=== PATIENT | male | born 1950 | race African-American/Black ===

== ENCOUNTER 2018-03-15 13:51 | Emergency (ER) | payer OTHER ==
[2018-03-15] MEDS ORDERED: SODIUM CHLORIDE 1,000 ML IV ONE (14:17)
--- NOTE | 2018-03-15 14:19 | PDOC ---
History of Present Illness - General Chief Complaint: Syncope/Near Syncope Stated Complaint: Syncope/Near Syncope Time Seen by Provider: 03/15/18 14:03 History Source: Patient Exam Limitations: No Limitations - History of Present Illness Initial Comments: 03/15/18 14:19 68y M hx of RA, smoking, opiod abuse present with complaint of syncope. pt states he has been feeling fine this morning, had a couple of beers and was mowing his lawn this morning when he syncopized. he denies any associated headache, dizziness, n/v, f/c, cough cp, abd pain, back pain, neck pain, sob, hall. denies any opiate use recently. no prior history of syncope. Past History - Past Medical History Allergies/Adverse Reactions: Allergies Allergy/AdvReac Type Severity Reaction Status Date / Time No Known Allergies Allergy Verified 03/15/18 14:00 Home Medications: Ambulatory Orders NK [No Known Home Medication] 03/15/18 COPD: No Other medical history: RA - Suicide/Smoking/Psychosocial Hx Smoking History: Current every day smoker Have you smoked in the past 12 months: Yes Number of Cigarettes Smoked Daily: 20 Information on smoking cessation initiated: No Hx Alcohol Use: No Drug/Substance Use Hx: No Substance Use Type: Alcohol, Marijuana Review of Systems - Review of Systems Able to Perform ROS?: Yes Comments:: 03/15/18 14:31 Constitutional - no reported Fever, Chills, HEENT: no reported vision changes, sore throat Respiratory: no reported cough, sob, hemoptysis Cardiac: +syncope no reported chest pain, palpitations, light headedness, leg swelling Abd/GI: no reported abd pain, nausea, vomiting, blood per rectum, melena, diarrhea : no reported dysuria, frequency, discharge Musculskelatal - no reported back pain, joint swelling skin - no reported bruising, erythema, rash neurological: no reported headache, numbness, focal weakness, tingling, ataxia, hematologic: no reported easy bruising, easy bleeding *Physical Exam - Vital Signs Last Vital Signs Temp Pulse Resp BP Pulse Ox 97.8 F 83 18 105/69 99 03/15/18 14:01 03/15/18 14:54 03/15/18 14:54 03/15/18 14:54 03/15/18 14:54 - Physical Exam Comments: 03/15/18 14:31 GENERAL: The patient is awake, alert, and fully oriented, Nontoxic - in no acute distress. HEAD: Normocephalic, contusion on the L pariatal scalp near vertex, no fcal tenderness or step offs EYES: extraocular movements intact, sclera anicteric, conjunctiva clear. ENT: Normal voice, dry mucous membranes. NECK: Normal range of motion, supple LUNGS: Breath sounds equal, clear to auscultation bilaterally. No wheezes, no rhonchi, no rales. HEART: Regular rate and rhythm, normal S1 and S2 without murmur, rub or gallop. ABDOMEN: Soft, nontender, normoactive bowel sounds. No guarding, no rebound. . No CVA tenderness EXTREMITIES: Normal range of motion, no edema. No clubbing or cyanosis. No cords, erythema, or tenderness. NEUROLOGICAL: No facial assymetry, Normal speech, PSYCH: Normal mood, normal affect. SKIN: superficail abrasions on the R flank without focal tenderness or ecchymosis, mil dtenderess in the R lateral chest wall Heart Score/ECG Review - ECG Impressions Comment:: 03/15/18 14:33 Twelve-lead EKG was performed and reviewed by me. There is normal sinus rhythm with a normal rate. Rate of 88 Left axis deviation There is normal R wave progression There are no ST or T wave abnormalities. ED Treatment Course - LABORATORY CBC & Chemistry Diagram: 03/15/18 14:20 03/15/18 14:20 - ADDITIONAL ORDERS Additional order review: Laboratory Results 03/15/18 03/15/18 14:20 14:20 PT with INR 11.60 INR 1.03 Sodium 140 Potassium 4.8 Chloride 109 H Carbon Dioxide 22 Anion Gap 9 BUN 11 Creatinine 1.4 H Creat Clearance w eGFR 50.40 Random Glucose 67 L Calcium 8.6 Total Bilirubin 0.5 AST 30 ALT 21 Alkaline Phosphatase 95 Creatine Kinase 306 Creatine Kinase Index 1.3 CK-MB (CK-2) 4.198 H Troponin I < 0.02 Total Protein 6.6 Albumin 3.3 L 03/15/18 14:20 RBC 3.73 L MCV 94.2 MCHC 33.6 RDW 12.8 MPV 7.3 L Neutrophils % 66.8 Lymphocytes % 17.8 Monocytes % 7.3 Eosinophils % 7.2 H Basophils % 0.9 - RADIOLOGY Radiology Studies Ordered: Category Date Time Status HEAD CT WITHOUT CONTRAST [CT] Stat CT Scan 03/15/18 14:16 Completed CHEST X-RAY PORTABLE* [RAD] Stat Radiology 03/15/18 14:17 Completed RIBS RIGHT SIDE [RAD] Stat Radiology 03/15/18 14:57 Taken - Medications Given in the ED: ED Medications Discontinued Medications Generic Name Dose Route Start Last Admin Trade Name Freq PRN Reason Stop Dose Admin Sodium Chloride 1,000 mls @ 1,000 mls/hr 03/15/18 14:17 03/15/18 14:28 Normal Saline - IV 03/15/18 15:16 1,000 mls/hr .Q1H ONE Administration Medical Decision Making - Medical Decision Making 03/15/18 14:36 suspect dehydration as pt was drinking and was exerting himself no assoc pain to suggest catestrophic ascular event will ck labs, ekg, cxr will give fluids for hydration will reassess 03/15/18 17:13 labs reviewd pts BP improving with fluids cxr clear ct head neg for acute pathology willl dc the pt with pmd fu return precautions were dsicussed I discussed the physical exam findings, ancillary test results and final diagnoses with the patient. I answered all of the patient's questions. The patient was satisfied with the care received and felt comfortable with the discharge plan and treatment plan. The patient will call their primary care physician within 24 hours to arrange follow-up and will return to the Emergency Department with any new, persistent or worsening symptoms. *DC/Admit/Observation/Transfer Diagnosis at time of Disposition: Dehydration, Rib pain on right side Syncope Qualifiers: Syncope type: heat syncope Encounter type: initial encounter Qualified Code(s) : T67.1XXA - Heat syncope, initial encounter Scalp abrasion Qualifiers: Encounter type: initial encounter Qualified Code(s): S00.01XA - Abrasion of scalp, initial encounter - Discharge Dispostion Disposition: HOME Condition at time of disposition: Improved Decision to Admit order: No - Referrals Referrals: Clemente Campos MD [Staff Physician] - - Patient Instructions Printed Discharge Instructions: DI for Syncope in Adults (Fainting) Additional Instructions: Return to the emergency department immediately with ANY new, persistent or worsening symptoms. Apply bacitracin to your abrasion on your scalp. TAke tylenol or motrin for your rib pain. Make sure to stay well hyrated You MUST call and follow up with your doctor tomorrow for further evaluation of your symptoms. Results were discussed with you. Please make sure your doctor reviews the results of your emergency evaluation. If you had any xrays during your visit, it was read preliminarily by myself, a Radiologist will review it and if there are any additional findings we will call you. Print Language: ZAMBIAN - Post Discharge Activity
[2018-03-15 14:28] VITALS: TEMP 97.8; BMI 22.1
[2018-03-15 14:33] LABS: BASO % 0.9 % (0-2.0); EOS % 7.2 % (0-4.5); HEMATOCRIT 35.1 % (35.4-49); HEMOGLOBIN 11.8 GM/dL (11.7-16.9); LYMPH % 17.8 % (8-40); MCH 31.6 pg (25.7-33.7); MCHC 33.6 g/dl (32.0-35.9); MEAN CELL VOLUME 94.2 fl (80-96); MEAN PLT VOLUME 7.3 fl (7.5-11.1); MONO % 7.3 % (3.8-10.2); NEUT % 66.8 % (42.8-82.8); PLATELET COUNT 353 K/MM3 (134-434); RBC 3.73 M/mm3 (4.00-5.60); RDW 12.8 % (11.9-15.9); WHITE BLOOD COUNT 7.8 K/mm3 (4.0-10.0)
[2018-03-15 14:59] LABS: ALBUMIN 3.3 g/dl (3.4-5.0); ANION GAP 9 (8-16); BILIRUBIN,TOTAL 0.5 mg/dL (0.2-1.0); BLOOD UREA NITROGEN 11 mg/dL (7-18); CALCIUM 8.6 mg/dL (8.5-10.1); CHLORIDE 109 mmol/L (98-107); CO2 22 mmol/L (21-32); CREATININE 1.4 mg/dL (0.7-1.3); GLUCOSE,RANDOM 67 mg/dL (74-106); POTASSIUM 4.8 mmol/L (3.5-5.1); SGOT/AST 30 U/L (15-37); SGPT/ALT 21 U/L (12-78); SODIUM 140 mmol/L (136-145); TOT PROT 6.6 g/dl (6.4-8.2)
[2018-03-15 15:02] LABS: ALK PHOS 95 U/L (45-117)
[2018-03-15 15:05] LABS: INR 1.03 (0.82-1.09); PROTHROMBIN TIME (PATIENT) 11.6 SEC (9.7-13.0)
--- NOTE | 2018-03-15 16:28 | EKG ---
Test Reason : Blood Pressure : / mmHG Vent. Rate : 088 BPM Atrial Rate : 088 BPM P-R Int : 172 ms QRS Dur : 090 ms QT Int : 364 ms P-R-T Axes : 071 -44 046 degrees QTc Int : 440 ms NORMAL SINUS RHYTHM LEFT AXIS DEVIATION ABNORMAL ECG WHEN COMPARED WITH ECG OF 14-JUL-2001 20:02, QRS DURATION HAS INCREASED ST NO LONGER DEPRESSED IN INFERIOR LEADS NONSPECIFIC T WAVE ABNORMALITY NOW EVIDENT IN INFERIOR LEADS QT HAS SHORTENED Confirmed by HARRIETT CRUM MD ([id number]) on 03/15/2018 4:27:52 PM Referred By: Confirmed By:HARRIETT CRUM MD
[2018-03-15] MEDS ORDERED: BACITRACIN 0.9 GM PACKET ONE (18:30)
[2018-03-15 18:45] VITALS: BP 120/67; PULSE 87
== END 2018-03-15 18:45 | disposition home or self-care (01) ==
LOC: JER 13:51
PROC: 3E0337Z Introduction of Electrolytic and Water Balance Substance into Peripheral Vein, Percutaneous Approach (ICD-10-PCS; principal; 2018-03-15)
DX: T67.1XXA Heat syncope, initial encounter (principal); E86.0 Dehydration; X50.0XXA Overexertion from strenuous movement or load, initial encounter; Y93.H2 Activity, gardening and landscaping; Y92.017 Garden or yard in single-family (private) house as the place of occurrence of the external cause; Y99.8 Other external cause status
CPT/HCPCS: 36415; 70450-TC; 71045-TC-FY; 71101-TC-RT-FY; 80053; 82550; 82553; 84484; 85025; 85610; 93005; 93010; 99285-25; J7030

== ENCOUNTER 2019-01-21 14:24 | Inpatient (IN) | payer OTHER ==
--- NOTE | 2019-01-21 14:53 | PDOC ---
Rapid Medical Evaluation Time Seen by Provider: 01/21/19 14:49 Medical Evaluation: Allergies Allergy/AdvReac Type Severity Reaction Status Date / Time No Known Allergies Allergy Verified 03/15/18 14:00 01/21/19 14:50 I have performed a brief in-person evaluation of this patient The patient present with a chief complaint of: palpitations x 3 days. Also reports neck pain and insomnia. Pertinent physical exam findings: NAD neck is supple even and unlabored breathing I have ordered the following: ekg The patient will proceed to the ED for further evaluation. Discharge Disposition - Diagnosis Palpitations - Referrals - Patient Instructions - Post Discharge Activity
[2019-01-21 14:57] VITALS: BMI 20.7
--- NOTE | 2019-01-21 15:36 | PDOC ---
History of Present Illness - General Chief Complaint: Psychiatric Stated Complaint: NECK PAIN/ANXIETY Time Seen by Provider: 01/21/19 14:49 - History of Present Illness Initial Comments: King Jimenez is a 69yo man with a PMH of BPH, current smoker, heroin and daily alcohol use who presents today after an apparent syncopal episode 3 days ago. He states that he "fell out" in his kitchen 3 days ago with +LOC and hit the back of his head. His brothers were prsent at home but neither witnessed the event. He regained consciousness on his own after an unknown period of time and was then able to call his brothers for assistance. Since the fall, he has had chest tightness, new dyspnea with exertion, left arm tingling, and frequent heavy sweating. He states that he has had frequent palpitations and racing heart , which he has never experienced before. He "knows something is wrong" and reports feeling extremely anxious over the past few days. He is requesting something to help with the anxiety. Mr Jimenez states that he currently smokes 1/2 PPD, drinks "a few" beers every day, and snorts heroin on occasion (most recently 2-3 weeks ago). He has no known h/ o HTN, DM, HLD or any other chronic medical condition. Past History - Past Medical History Allergies/Adverse Reactions: Allergies Allergy/AdvReac Type Severity Reaction Status Date / Time No Known Allergies Allergy Verified 01/21/19 14:56 Home Medications: Ambulatory Orders NK [No Known Home Medication] 03/15/18 COPD: No - Suicide/Smoking/Psychosocial Hx Smoking History: Never smoked Have you smoked in the past 12 months: No Number of Cigarettes Smoked Daily: 20 Information on smoking cessation initiated: No Hx Alcohol Use: No Drug/Substance Use Hx: No Substance Use Type: Alcohol, Marijuana Review of Systems - Review of Systems Comments:: General: No fevers, no weight or appetite change, no malaise, +diaphoresis, + chills HEENT: No changes in vision, no changes in hearing, no congestion, no sore throat CV: +palpitatiosn, +chest tightness, no LE edema Pulm: +SOB, no cough, no wheezing GI: No nausea or vomiting, no change in bowel habits, no melena : No frequency, no urgency, no dysuria Musc: No back pain, no joint swelling, no recent injury Skin: No rash, no lesions, no erythema Endo: No excessive thirst, no heat/cold intolerance Heme: No unusual bruising or bleeding, no swollen glands Neuro: +Syncope w/ head injury, +LUE tingling and pain, no focal weakness Vasc: No claudication Psych: +Inc anxiety. +heroin use, no SI or HI *Physical Exam - Vital Signs Last Vital Signs Temp Pulse Resp BP Pulse Ox 98.6 F 97 H 18 139/98 98 01/21/19 14:49 01/21/19 14:49 01/21/19 14:49 01/21/19 14:49 01/21/19 14:49 - Physical Exam Comments: General: Comfortable, no acute distress HEENT: PERRL, EOMI, MMM, voice normal, normal neck ROM Cards: RRR, no murmur appreciated Pulm: Comfortable on room air, clear to auscultation bilaterally Abd: Soft, nontender, nondistended : No CVA tenderness Ext: Atraumatic. No LE edema. ROM intact. Vasc: Extremities WWP Skin: Normal color, no rashes or lesions Neuro: A&Ox3, CN grossly intact, normal speech, motor/sensory grossly intact and symmetric Psych: Appears anxious ED Treatment Course - LABORATORY CBC & Chemistry Diagram: 01/21/19 15:47 01/21/19 15:47 Medical Decision Making - Medical Decision Making 01/21/19 15:35 King Jimenez is a 69yo man with a PMH of BPH, current smoker, heroin and daily alcohol use who presents today after an apparent syncopal episode 3 days ago. - EKG completed on arrival, shows ST elevations in V3 and V4, t-wave inversion in III and aVF, poor R wave progression in lateral leads - Concern for MO 3 days ago. - Ddx also includes new onset CHF, valve change, new onset paroxysmal a-fib. Less likely PE given lack of risk factors. - Pt reports fall with head injury and LOC. CT head/c-spine to rule out acute injury - CBC, CMP, trop, BNP, coags, CXR, CT head, CT c-spine 01/21/19 16:24 - Spoke to Dr Babin, cardiology, reagarding EKG changes. Will send EKG to him for review - Labs pending 01/21/19 17:52 - Labs completed. Notable for BNP 2700. Trop negative - Spoke to Dr Restrepo regarding admission. Requests telemetry admission and consult to Dr Ontiveros for syncope. Discussed with Dr Oliva. Christina Cortes PGY1 *DC/Admit/Observation/Transfer Diagnosis at time of Disposition: Palpitations, ST segment changes on electrocardiogram Syncope Qualifiers: Syncope type: heat syncope Encounter type: initial encounter Qualified Code(s) : T67.1XXA - Heat syncope, initial encounter - Discharge Dispostion Decision to Admit order: Yes - Referrals Referrals: Clemente Campos MD [Primary Care Provider] - - Patient Instructions - Post Discharge Activity
--- NOTE | 2019-01-21 15:44 | PDOC ---
Attending Attestation - HPI HPI: 01/21/19 16:30 The patient is a 69 year old male, with a significant past medical history of BPH, who presents to the emergency department s/p syncope and fall. As per patient, he syncopized and subsequently fell backwards hitting the back of his head and neck onsetting pain and tingling to his left arm. He denies any recent nausea, vomit, diarrhea or constipation. He denies any recent dysuria, frequency , urgency or hematuria. Allergies: NKA Past surgical history: None reported. Social History: Smoker. Alcohol abuse. Occasional heroin usage. Primary Care Physician: Dr. Clemente Campos - Physicial Exam PE: 01/21/19 16:30 GENERAL: +Anxious. The patient is in no acute distress. HEAD: Normal with no signs of trauma. EYES: PERRLA, EOMI, sclera anicteric, conjunctiva clear. ENT: Ears normal, nares patent, oropharynx clear without exudates. Moist mucous membranes. NECK: Normal range of motion, supple without lymphadenopathy, JVD, or masses. LUNGS: Breath sounds equal, clear to auscultation bilaterally. No wheezes, and no crackles. HEART:Regular rate and rhythm, normal S1 and S2 without murmur, rub or gallop. ABDOMEN: Soft, nontender, normoactive bowel sounds. No guarding, no rebound. No masses palpable. EXTREMITIES: Normal range of motion, no edema. No clubbing or cyanosis. No erythema, or tenderness. NEUROLOGICAL: Cranial nerves II through XII grossly intact. Normal speech. No focal neurological deficits. MUSCULOSKELETAL: Back non-tender to palpation, no CVA tenderness SKIN: Warm, Dry, normal turgor, no rashes or lesions noted. <Marito Ruby - Last Filed: 01/21/19 16:30> - Resident Resident Name: Christina Cortes - ED Attending Attestation I have performed the following: I have examined & evaluated the patient, The case was reviewed & discussed with the resident, I agree w/resident's findings & plan, Exceptions are as noted - Medical Decision Making 01/21/19 15:32 EKG - LBBB, rate of 87 bpm SR rate of 88 bpm, LAD, intervals nml (pr:172ms, QRS:90ms, QRc:440ms), no st elevation or depression (FEBRUARY 2018) EKG sent to Dr Babin Pt currently has no chest pain but states he is anxious Request medications for anxiety 01/21/19 17:01 Laboratory Tests 01/21/19 01/21/19 01/21/19 15:47 15:47 15:47 WBC 4.8 Hgb 12.9 Hct 37.6 Plt Count 143 D INR 0.87 Sodium 133 L Potassium 4.5 Chloride 97 L Carbon Dioxide 31 BUN 12 Creatinine 1.1 Random Glucose 79 Creatine Kinase 265 Troponin I < 0.02 B-Natriuretic Peptide 01/21/19 15:47 WBC Hgb Hct Plt Count INR Sodium Potassium Chloride Carbon Dioxide BUN Creatinine Random Glucose Creatine Kinase Troponin I B-Natriuretic Peptide 2767.0 [address] Being seen by DR Babin now Will admit to Dr Restrepo <Moni Oliva - Last Filed: 01/22/19 14:01> *DC/Admit/Observation/Transfer <Marito Ruby - Last Filed: 01/21/19 16:30> - Discharge Dispostion Decision to Admit order: Yes <Moni Oliva - Last Filed: 01/22/19 14:01> Diagnosis at time of Disposition: Palpitations, Syncope, ST segment changes on electrocardiogram - Discharge Dispostion Condition at time of disposition: Stable Attestations - Attestations 01/21/19 16:30 Documentation prepared by Marito Ruby, acting as medical laboratory technician for Moni Oliva MD. <Marito Ruby - Last Filed: 01/21/19 16:30>
[2019-01-21] MEDS ORDERED: ASPIRIN 81 MG CHEWABLE TABLETS PO ONE (16:11)
[2019-01-21] MEDS ORDERED: LORazepam 0.5 MG TABLET PO ONE (16:11)
[2019-01-21 16:14] LABS: BASO % 1.1 % (0-2.0); EOS % 0.8 % (0-4.5); HEMATOCRIT 37.6 % (35.4-49); HEMOGLOBIN 12.9 GM/dL (11.7-16.9); LYMPH % 25.8 % (8-40); MCH 35.7 pg (25.7-33.7); MCHC 34.3 g/dl (32.0-35.9); MEAN CELL VOLUME 104.1 fl (80-96); MEAN PLT VOLUME 8.1 fl (7.5-11.1); MONO % 9.5 % (3.8-10.2); NEUT % 62.8 % (42.8-82.8); PLATELET COUNT 143 K/MM3 (134-434); RBC 3.62 M/mm3 (4.00-5.60); RDW 13.2 % (11.9-15.9); WHITE BLOOD COUNT 4.8 K/mm3 (4.0-10.0)
[2019-01-21] MEDS ORDERED: LORazepam 0.5 MG TABLET ONE (16:17)
[2019-01-21] MEDS ORDERED: ASPIRIN 81 MG CHEWABLE TABLETS ONE (16:17)
[2019-01-21 16:26] LABS: INR 0.87 (0.83-1.09); PROTHROMBIN TIME (PATIENT) 10.3 SEC (9.7-13.0)
[2019-01-21 16:37] LABS: ALK PHOS 91 U/L (45-117); ANION GAP 6 MMOL/L (8-16); BILIRUBIN,TOTAL 1.7 mg/dL (0.2-1); BLOOD UREA NITROGEN 12 mg/dL (7-18); CALCIUM 9.1 mg/dL (8.5-10.1); CHLORIDE 97 mmol/L (98-107); CO2 31 mmol/L (21-32); CREATININE 1.1 mg/dL (0.55-1.3); GLUCOSE,RANDOM 79 mg/dL (74-106); POTASSIUM 4.5 mmol/L (3.5-5.1); SGOT/AST 60 U/L (15-37); SGPT/ALT 34 U/L (13-61); SODIUM 133 mmol/L (136-145)
--- NOTE | 2019-01-21 17:17 | CON.CARD ---
Consult Consult Specialty:: Cardiology Referred by:: Dr. Christie Oliva (ER) Reason for Consultation:: Cardiac evaluation - History of Present Illness Chief Complaint: Dizziness History of Present Illness: Patient is a 69 year old male with underlying history of BPH, polysubstance abuse (smoking cigarette, heroine and alcohol) who presented with what appears to be a syncopal episode 3 days ago. He fell in the kitchen with LOC and hit the back of his head. It was unwitnessed. He regained consciousness, but did not seek medical attention at that time. He complained of chest tightness, dyspnea with exertion, left arm numbness and sweating. He also complained of palpitations intermittently. He also complains of anxiety. He denies HTN, hyperlipidemia, DM or CAD. - History Source History Provided By: Patient, Medical Record Limitations to Obtaining History: Poor Historian - Past Surgical History Past Surgical History: Yes: None - Alcohol/Substance Use Hx Alcohol Use: Yes History of Substance Use: reports: Heroin - Smoking History Smoking history: Current some day smoker Aproximately how many cigarettes per day: 20 Home Medications - Allergies Allergies/Adverse Reactions: Allergies Allergy/AdvReac Type Severity Reaction Status Date / Time No Known Allergies Allergy Verified 01/21/19 14:56 - Home Medications Home Medications: Ambulatory Orders NK [No Known Home Medication] 03/15/18 Review of Systems - Review of Systems Constitutional: denies: Chills, Fever Cardiovascular: reports: Chest Pain, Palpitations, Shortness of Breath Respiratory: reports: SOB. denies: Cough, Hemoptysis, Orthopnea, PND Gastrointestinal: denies: Abdominal Pain, Constipation, Diarrhea, Melena, Nausea , Rectal Bleeding, Vomiting Musculoskeletal: denies: Joint Pain Neurological: reports: Dizziness, Syncope. denies: Headache, Seizure Vital Signs: Vital Signs Temperature 98.6 F 01/21/19 14:49 Pulse Rate 97 H 01/21/19 14:49 Respiratory Rate 18 01/21/19 14:49 Blood Pressure 139/98 01/21/19 14:49 O2 Sat by Pulse Oximetry (%) 98 01/21/19 14:49 Eyes: Yes: PERRL HENT: Yes: Atraumatic Neck: Yes: Supple Respiratory: Yes: CTA Bilaterally Gastrointestinal: Yes: Normal Bowel Sounds, Soft. No: Tenderness Cardiovascular: Yes: Regular Rate and Rhythm JVD: No Carotid Bruit: No PMI: Non-Displaced Heart Sounds: Yes: S1, S2 Murmur: Yes: Systolic Murmur, Grade 1 Edema: No - Other Data Labs, Other Data: CBC, BMP 01/21/19 15:47 01/21/19 15:47 INR, PTT INR 0.87 (0.83-1.09) 01/21/19 15:47 Troponin, BNP 01/21/19 01/21/19 15:47 15:47 Troponin I < 0.02 B-Natriuretic Peptide 2767.0 H Troponin, BNP Sinus with ?LBBB and ST abnormalities Echo: Pending Imaging - Results Chest X-ray: Report Reviewed (Hyperinflation, nodular density) EKG: Report Reviewed Problem List - Problems (1) Chest pain Code(s): R07.9 - CHEST PAIN, UNSPECIFIED (2) Shortness of breath Code(s): R06.02 - SHORTNESS OF BREATH (3) Dizziness Code(s): R42 - DIZZINESS AND GIDDINESS (4) Palpitations Code(s): R00.2 - PALPITATIONS (5) ST segment changes on electrocardiogram Code(s): R94.31 - ABNORMAL ELECTROCARDIOGRAM [ECG] [EKG] (6) Syncope Code(s): R55 - SYNCOPE AND COLLAPSE Qualifiers: Syncope type: heat syncope Encounter type: initial encounter Qualified Code(s): T67.1XXA - Heat syncope, initial encounter Assessment/Plan 1. Abnormal ECG suggest CAD with new LBBB 2. Syncope, etiology to be determined 3. Anxiety 4. Palpitations, rule out arrhythmia PLAN: 1. Serial cardiac enzymes 2. Add beta honey - Metoprolol 25 mg BID 3. ASA 4. Echocardiography to assess LV/RV and valvular function 5. Further cardiac evaluation to follow and continue telemetry monitoring Evert Babin MD
[2019-01-22] MEDS: METOPROLOL TARTRATE 25 MG TABLET (FP) PO SCH ×2 (00:03→09:45)
[2019-01-22 06:24] LABS: EOS % 3.2 % (0-4.5); HEMATOCRIT 38.5 % (35.4-49); HEMOGLOBIN 12.9 GM/dL (11.7-16.9); LYMPH % 30.3 % (8-40); MCH 34.7 pg (25.7-33.7); MCHC 33.6 g/dl (32.0-35.9); MEAN CELL VOLUME 103.1 fl (80-96); MEAN PLT VOLUME 7.9 fl (7.5-11.1); MONO % 16.4 % (3.8-10.2); NEUT % 49.1 % (42.8-82.8); PLATELET COUNT 137 K/MM3 (134-434); RBC 3.73 M/mm3 (4.00-5.60); RDW 13.2 % (11.9-15.9); WHITE BLOOD COUNT 3.9 K/mm3 (4.0-10.0)
[2019-01-22 06:59] LABS: ALBUMIN 3.5 g/dl (3.4-5.0); ALK PHOS 83 U/L (45-117); ANION GAP 7 MMOL/L (8-16); BILIRUBIN,TOTAL 1.7 mg/dL (0.2-1); BLOOD UREA NITROGEN 15 mg/dL (7-18); CHLORIDE 100 mmol/L (98-107); CO2 28 mmol/L (21-32); GLUCOSE,RANDOM 77 mg/dL (74-106); POTASSIUM 3.7 mmol/L (3.5-5.1); SGOT/AST 50 U/L (15-37); SGPT/ALT 30 U/L (13-61); SODIUM 136 mmol/L (136-145); TOT PROT 6.6 g/dl (6.4-8.2)
[2019-01-22] MEDS: HEPARIN NA (PORCINE) 5,000 UNITS/ML 1ML VIAL SQ SCH ×2 (09:45→22:33)
[2019-01-22] MEDS: ASPIRIN COATED 81 MG TABLET.EC PO SCH (09:45)
--- NOTE | 2019-01-22 10:35 | CONSULT ---
Consult - text type - Consultation Consultation Note: NEUROLOGY CONSULT APPRECIATED: This 69 yo RH single disabled man lives with his brothers. PMHX polysubstance abuse-daily ETOH use and 45 years of heroin use (snorted) last use 3-4 days ago. Here after report of a fall backwards without prodromal symptoms and LOC for unwitnessed amount of time. He reports heroin use prior and possibly after the event "to calm down," but, since that time has felt palpitations, chills, insomnia and believes he is " dope sick." Review of systems significant for "shooting pains" up both arms into the neck and depression since the loss of his mother a year ago. MCV 104.1 NA 133-> 136 AST 60 ALT 34 Alk phos 91 CK-MB 6.4 -> 3.7 albumin 4.0 ABHAY: Cachectic. Cor reg. No bruit. Neck supple. Eyes appear injected. No evidence of external head trauma. NEURO: Mentation/Speech: Awake, alert, cooperative. Alert and oriented x 3. CNII-CNXII: EOM intact. OD 3 mm and reactive. OS 5 mm, cloudy and fixed (chronic). No facial. Motor: No drift. No myoclonus or asterixis. St. normal. Reflexes normal. Toes downgoing. Coordination: No FTN dystaxia. Sensation: Reduced to vibration in toes. Romberg - Gait: Slightly wide-based. Can walk on heels and toes without difficulty. Impression: 1. Syncope vs fall with head trauma vs ETOH-withdrawal seizure. 2. Opiate/ETOH withdrawal 3. 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 Detox consult. Referral to rehab center Thank you very much, Austin Ontiveros MD
--- NOTE | 2019-01-22 10:45 | ECHO ---
Name: GEORGE MERLOS Exam:Adult Echocardiogram Study Date: 01/22/2019 07:52 AM Age: 69 yrs Reason For Study: SYNCOPE Height: 69 in Weight: 140 lb BSA: 1.8 m2 MMode/2D Measurements & Calculations IVSd: 0.90 cm Ao root diam: 2.7 cm LVIDd: 4.4 cm LA dimension: 2.8 cm LVIDs: 3.8 cm LVPWd: 0.72 cm EDV(Teich): 89.2 ml LVOT diam: 2.0 cm ESV(Teich): 61.1 ml LVLd ap4: 8.1 cm SV(MOD-sp4): 17.3 ml EDV(MOD-sp4): 68.3 ml LVLs ap4: 7.6 cm ESV(MOD-sp4): 51.0 ml LAV (MOD-bp): 32.3 ml Doppler Measurements & Calculations MV E max luis: 92.6 cm/sec Ao V2 max: 125.3 cm/sec MV A max luis: 29.1 cm/sec Ao max P.3 mmHg MV E/A: 3.2 SHELL(V,D): 2.1 cm2 MV dec time: 0.10 sec LV V1 max P.7 mmHg MR max luis: 506.3 cm/sec LV V1 max: 82.0 cm/sec MR max P.6 mmHg TR max luis: 218.5 cm/sec PA V2 max: 106.4 cm/sec TR max P.1 mmHg PA max P.5 mmHg Med Peak E' Luis: 3.6 cm/sec Med E/e': 25.8 Lat Peak E' Luis: 6.7 cm/sec Lat E/e': 13.7 Procedure A two-dimensional transthoracic echocardiogram with color flow and Doppler was performed. The patient was in normal sinus rhythm during the exam. The patient had a bundle branch block rhythm during the exam. Left Ventricle Ejection Fraction = 28. Left ventricular systolic function is severely reduced. Diastolic dysfunction , Grade II, consistent with elevated left atrial pressure. There is severe global hypokinesis of the left dahiana tricle. Septal motion is consistent with conduction abnormality. Right Ventricle The right ventricle is grossly normal size. The right ventricular systolic function is mildly reduced . Atria The left atrial size is normal. The right atrium is mildly dilated. Mitral Valve The mitral valve is normal. There is mild mitral regurgitation. Tricuspid Valve The tricuspid valve is normal. There is mild tricuspid regurgitation. Right ventricular systolic pres sure is normal. Aortic Valve There is mild aortic sclerosis.;. The aortic valve opens well. Trace aortic regurgitation. Pulmonic Valve The pulmonic valve is not well visualized. Great Vessels The aortic root is normal size. Pericardium/Pleura There is no pericardial effusion. Interpretation Summary Left ventricular systolic function is severely reduced. There is severe global hypokinesis of the left ventricle. The right ventricular systolic function is mildly reduced. The right atrium is mildly dilated. There is mild mitral regurgitation. There is mild tricuspid regurgitation. There is mild aortic sclerosis.; Trace aortic regurgitation. MD Ion Rivera 01/22/2019 10:44 AM
[2019-01-22 12:00] LABS: COCAINE, UR NEGATIVE ng/ml (CUTOFF=300); METHADONE, UR NEGATIVE ng/ml (CUTOFF=300); PHENCYCLIDINE,URINE NEGATIVE ng/ml (CUTOFF=25); URINE AMPHETAMINES NEGATIVE ng/ml (CUTOFF=500); URINE BARBITURATES NEGATIVE ng/ml (CUTOFF=200); URINE BENZODIAZEPINES NEGATIVE ng/ml (CUTOFF=200)
[2019-01-22 12:01] LABS: OPIATES, URI POSITIVE ng/ml (CUTOFF=300)
--- NOTE | 2019-01-22 12:04 | PN ---
Progress Note, Physician Chief Complaint: Complains of anxiety Echocardiography noted History of Present Illness: Patient was seen and examined. Awake and alert. Chart was reviewed Denies chest pain and SOB Intermittent palpitations Echocardiography reveals severe LV systolic function, mild RV systolic dysfunction, mild MR and TR - Current Medication List Current Medications: Active Medications Aspirin (Ecotrin -) 81 mg PO DAILY [facility] Last Admin: 01/22/19 09:45 Dose: 81 mg Heparin Sodium (Porcine) (Heparin -) 5,000 unit SQ BID [facility] Last Admin: 01/22/19 09:45 Dose: 5,000 unit Metoprolol Tartrate (Lopressor -) 25 mg PO BID [facility] Last Admin: 01/22/19 09:45 Dose: 25 mg Thiamine HCl (Vitamin B1 Injection -) 250 mg IVPB TID [facility] Stop: 01/25/19 13:59 - Objective Vital Signs: Vital Signs Temperature 98.1 F 01/22/19 08:46 Pulse Rate 68 01/22/19 08:46 Respiratory Rate 18 01/22/19 08:46 Blood Pressure 111/90 01/22/19 08:46 O2 Sat by Pulse Oximetry (%) 100 01/22/19 08:46 Eyes: Yes: PERRL HENT: Yes: Atraumatic Neck: Yes: Supple Cardiovascular: Yes: Regular Rate and Rhythm, S1, S2 Respiratory: Yes: CTA Bilaterally Gastrointestinal: Yes: Normal Bowel Sounds, Soft. No: Tenderness Edema: No Additional Findings/Remarks: - Review of Systems Constitutional: denies: Chills, Fever Cardiovascular: reports: Chest Pain, Palpitations, Shortness of Breath Respiratory: reports: SOB. denies: Cough, Hemoptysis, Orthopnea, PND Gastrointestinal: denies: Abdominal Pain, Constipation, Diarrhea, Melena, Nausea , Rectal Bleeding, Vomiting Musculoskeletal: denies: Joint Pain Neurological: reports: Dizziness, Syncope. denies: Headache, Seizure Labs: CBC, BMP 01/22/19 05:30 01/22/19 05:30 INR, PTT INR 0.87 (0.83-1.09) 01/21/19 15:47 Problem List - Problems (1) Chest pain Code(s): R07.9 - CHEST PAIN, UNSPECIFIED (2) Shortness of breath Code(s): R06.02 - SHORTNESS OF BREATH (3) Dizziness Code(s): R42 - DIZZINESS AND GIDDINESS (4) Palpitations Code(s): R00.2 - PALPITATIONS (5) ST segment changes on electrocardiogram Code(s): R94.31 - ABNORMAL ELECTROCARDIOGRAM [ECG] [EKG] (6) Syncope Code(s): R55 - SYNCOPE AND COLLAPSE Qualifiers: Syncope type: heat syncope Encounter type: initial encounter Qualified Code(s): T67.1XXA - Heat syncope, initial encounter Assessment/Plan 1. Abnormal ECG suggest CAD with new LBBB 2. Severe LV systolic dysfunction/cardiomyopathy 2. Syncope, etiology to be determined 3. Anxiety 4. Palpitations, rule out arrhythmia PLAN: 1. Serial cardiac enzymes negative 2. Change Metoprolol to Carvedilol 3.125 mg BID and uptitrate 3. Add ACEI or ARB as tolerated 4. Continue ASA 6. Lipid profile and add statin if indicated 7. Schedule nuclear MPI (Pharmacologic) and further plans are to follow Evert Babin MD
[2019-01-22] MEDS ORDERED: LISINOPRIL 5 MG TABLET (FP) ONE (14:32)
[2019-01-22] MEDS ORDERED: THIAMINE HCL 200 MG/2 ML VIAL ONE ×2 (14:33→22:15)
--- NOTE | 2019-01-22 14:43 | EKG ---
Test Reason : Blood Pressure : / mmHG Vent. Rate : 087 BPM Atrial Rate : 087 BPM P-R Int : 176 ms QRS Dur : 134 ms QT Int : 426 ms P-R-T Axes : 079 -70 258 degrees QTc Int : 512 ms NORMAL SINUS RHYTHM LEFT AXIS DEVIATION LEFT BUNDLE BRANCH BLOCK ABNORMAL ECG WHEN COMPARED WITH ECG OF 15-MAR-2018 13:57, LEFT BUNDLE BRANCH BLOCK IS NOW PRESENT Confirmed by Anderson Rea ([id number]) on 01/22/2019 2:42:56 PM Referred By: Confirmed By:Anderson Rea
[2019-01-22] MEDS: THIAMINE HCL 200 MG/2 ML VIAL IVPB SCH ×2 (15:40→22:33)
[2019-01-22] MEDS: LISINOPRIL 5 MG TABLET (FP) PO SCH (15:40)
--- NOTE | 2019-01-22 16:23 | HP ---
Admitting History and Physical - Admission History of Present Illness: The patient is a 69 year old male, with a significant past medical history of BPH, who presents to the emergency department s/p syncope and fall. As per patient, he syncopized and subsequently fell backwards hitting the back of his head and neck. Pt complains of pain and tingling to his left arm. Pt does complain of substernal chest pain. Pt denies any sob/wheezing/abdominal pain/ nausea/vomiting. Pt admits to using heroin and last used 2 days ago. History Source: Patient, Medical Record - Past Medical History Psych: Yes: Addictions - Past Surgical History Past Surgical History: Yes: None - Smoking History Smoking history: Current some day smoker Have you smoked in the past 12 months: No Aproximately how many cigarettes per day: 20 - Alcohol/Substance Use Hx Alcohol Use: Yes History of Substance Use: reports: Heroin Home Medications - Allergies Allergies/Adverse Reactions: Allergies Allergy/AdvReac Type Severity Reaction Status Date / Time No Known Allergies Allergy Verified 01/21/19 14:56 - Home Medications Home Medications: Ambulatory Orders NK [No Known Home Medication] 03/15/18 Family Disease History - Family Disease History Family History: Unremarkable Review of Systems - Review of Systems Constitutional: reports: Other (Syncope) Eyes: reports: No Symptoms HENT: reports: No Symptoms Neck: reports: No Symptoms Cardiovascular: reports: Chest Pain Respiratory: reports: No Symptoms Gastrointestinal: reports: No Symptoms Genitourinary: reports: No Symptoms Physical Examination Vital Signs: Vital Signs Temperature 98 F 01/22/19 13:55 Pulse Rate 79 01/22/19 13:55 Respiratory Rate 19 01/22/19 13:55 Blood Pressure 147/100 01/22/19 13:55 O2 Sat by Pulse Oximetry (%) 98 01/22/19 13:55 Neck: Yes: WNL, Supple Cardiovascular: Yes: WNL, Regular Rate and Rhythm Respiratory: Yes: WNL, Regular, CTA Bilaterally Gastrointestinal: Yes: WNL, Normal Bowel Sounds, Soft Edema: No Neurological: Yes: WNL, Alert, Oriented ...Motor Strength: WNL Labs: CBC, BMP 01/22/19 05:30 01/22/19 05:30 Problem List - Problems (1) Acute on chronic systolic and diastolic heart failure, NYHA class 1 Assessment/Plan: BNP elevated at >2000 Cont coreg/acei As per cardio Code(s): I50.43 - ACUTE ON CHRONIC COMBINED SYSTOLIC AND DIASTOLIC HRT FAIL (2) HTN (hypertension) Assessment/Plan: Cont Asa/coreg/lisinopril Code(s): I10 - ESSENTIAL (PRIMARY) HYPERTENSION (3) Syncope Assessment/Plan: CT scan head unremarkable Carotid doppler did not show significant stenosis Code(s): R55 - SYNCOPE AND COLLAPSE Qualifiers: Syncope type: heat syncope Encounter type: initial encounter Qualified Code(s): T67.1XXA - Heat syncope, initial encounter (4) Peripheral neuropathy Assessment/Plan: Cont IV B12 Code(s): G62.9 - POLYNEUROPATHY, UNSPECIFIED (5) Polysubstance abuse Assessment/Plan: Urine toxicology screen Xanax prn Addictive medicine consult Monitor for withdrawal Code(s): F19.10 - OTHER PSYCHOACTIVE SUBSTANCE ABUSE, UNCOMPLICATED
[2019-01-22] MEDS ORDERED: CARVEDILOL 3.125 MG TABLET (FP) ONE (22:15)
[2019-01-22] MEDS ORDERED: HEPARIN NA (PORCINE) 5,000 UNITS/ML 1ML VIAL ONE (22:15)
[2019-01-22] MEDS: CARVEDILOL 3.125 MG TABLET (FP) PO SCH (22:33)
[2019-01-23] MEDS: ACETAMINOPHEN 325 MG TABLET (FP) PO PRN ×2 (00:56→22:15)
[2019-01-23] MEDS: ALPRAZolam 0.25 MG TABLET PO PRN ×3 (00:56→17:14)
[2019-01-23 06:33] LABS: BASO % 0.6 % (0-2.0); EOS % 2.3 % (0-4.5); HEMATOCRIT 40.7 % (35.4-49); HEMOGLOBIN 13.8 GM/dL (11.7-16.9); LYMPH % 31.1 % (8-40); MCH 35.3 pg (25.7-33.7); MCHC 33.9 g/dl (32.0-35.9); MEAN CELL VOLUME 104.1 fl (80-96); MEAN PLT VOLUME 8.5 fl (7.5-11.1); MONO % 13.7 % (3.8-10.2); NEUT % 52.3 % (42.8-82.8); PLATELET COUNT 145 K/MM3 (134-434); RBC 3.91 M/mm3 (4.00-5.60); RDW 13.1 % (11.9-15.9); WHITE BLOOD COUNT 4.3 K/mm3 (4.0-10.0)
[2019-01-23] MEDS: THIAMINE HCL 200 MG/2 ML VIAL IVPB SCH ×3 (06:59→22:16)
[2019-01-23 07:03] LABS: ALBUMIN 3.6 g/dl (3.4-5.0); ALK PHOS 80 U/L (45-117); ANION GAP 8 MMOL/L (8-16); BILIRUBIN,TOTAL 1.5 mg/dL (0.2-1); BLOOD UREA NITROGEN 11 mg/dL (7-18); CALCIUM 9.2 mg/dL (8.5-10.1); CHLORIDE 97 mmol/L (98-107); CHOLESTEROL 194 mg/dL (50-200); CO2 28 mmol/L (21-32); CREATININE 0.8 mg/dL (0.55-1.3); GLUCOSE,RANDOM 79 mg/dL (74-106); HDL CHOLESTEROL 134 mg/dL (40-60); POTASSIUM 3.4 mmol/L (3.5-5.1); SGOT/AST 49 U/L (15-37); SGPT/ALT 30 U/L (13-61); SODIUM 133 mmol/L (136-145); TOT PROT 6.9 g/dl (6.4-8.2); TRIGLYCERIDES 71 mg/dL (0-150)
[2019-01-23 08:06] LABS: SERUM IRON SATURATION 47 % (15-55); TOTAL IRON BINDING CAPACITY 207 ug/dL (250-450); UIBC 110 ug/dL (111-343)
[2019-01-23] MEDS: CARVEDILOL 3.125 MG TABLET (FP) PO SCH (08:30)
[2019-01-23] MEDS: LISINOPRIL 5 MG TABLET (FP) PO SCH ×2 (08:30→22:15)
[2019-01-23] MEDS ORDERED: REGADENOSON 0.4 MG/5 ML PRE-FILLED SYRINGE IVPUSH ONE ×2 (09:50→10:15)
[2019-01-23] MEDS: ASPIRIN COATED 81 MG TABLET.EC PO SCH (13:29)
[2019-01-23] MEDS: HEPARIN NA (PORCINE) 5,000 UNITS/ML 1ML VIAL SQ SCH ×2 (13:31→22:15)
[2019-01-23] MEDS ORDERED: POTASSIUM CHLORIDE TABS 20 MEQ TABLET.ER (FP) PO ONE (14:12)
--- NOTE | 2019-01-23 16:02 | PN ---
Progress Note, Physician History of Present Illness: No further near or true syncope, denies chest tightness, dyspnea at rest. Last use of heroin several days ago, drinks ETOH daily. - Current Medication List Current Medications: Active Medications Acetaminophen (Tylenol -) 650 mg PO Q4H PRN PRN Reason: PAIN Last Admin: 01/23/19 00:56 Dose: 650 mg Alprazolam (Xanax -) 0.5 mg PO Q8H PRN PRN Reason: ANXIETY Last Admin: 01/23/19 09:00 Dose: 0.5 mg Aspirin (Ecotrin -) 81 mg PO DAILY [facility] Last Admin: 01/23/19 13:29 Dose: 81 mg Carvedilol (Coreg -) 3.125 mg PO BID [facility] Last Admin: 01/23/19 08:30 Dose: 3.125 mg Heparin Sodium (Porcine) (Heparin -) 5,000 unit SQ BID [facility] Last Admin: 01/23/19 13:31 Dose: 5,000 unit Lisinopril (Prinivil) 5 mg PO DAILY [facility] Last Admin: 01/23/19 08:30 Dose: 5 mg Thiamine HCl (Vitamin B1 Injection -) 250 mg IVPB TID [facility] Stop: 01/25/19 13:59 Last Admin: 01/23/19 13:33 Dose: 250 mg - Objective Vital Signs: Vital Signs Temperature 97.5 F L 01/23/19 13:21 Pulse Rate 76 01/23/19 13:21 Respiratory Rate 14 01/23/19 13:21 Blood Pressure 157/94 01/23/19 13:21 O2 Sat by Pulse Oximetry (%) 100 01/23/19 10:00 Constitutional: Yes: No Distress, Calm, Thin Neck: Yes: Supple Cardiovascular: Yes: Regular Rate and Rhythm Respiratory: Yes: Regular, CTA Bilaterally, On Nasal O2 Gastrointestinal: Yes: Normal Bowel Sounds, Soft Edema: No Labs: CBC, BMP 01/23/19 05:30 01/23/19 05:30 INR, PTT INR 0.87 (0.83-1.09) 01/21/19 15:47 - ....Imaging EKG: Report Reviewed (Tele: NSR, no sustained tachyarrhythmias) Problem List - Problems (1) Alcohol abuse Code(s): F10.10 - ALCOHOL ABUSE, UNCOMPLICATED (2) Cardiomyopathy Code(s): I42.9 - CARDIOMYOPATHY, UNSPECIFIED Qualifiers: Cardiomyopathy type: unspecified Qualified Code(s): I42.9 - Cardiomyopathy , unspecified (3) HTN (hypertension) Code(s): I10 - ESSENTIAL (PRIMARY) HYPERTENSION Qualifiers: Hypertension type: essential hypertension Qualified Code(s): I10 - Essential (primary) hypertension (4) Heroin dependence Code(s): F11.20 - OPIOID DEPENDENCE, UNCOMPLICATED (5) Polysubstance abuse Code(s): F19.10 - OTHER PSYCHOACTIVE SUBSTANCE ABUSE, UNCOMPLICATED (6) Syncope Code(s): R55 - SYNCOPE AND COLLAPSE Qualifiers: Syncope type: heat syncope Encounter type: initial encounter Qualified Code(s): T67.1XXA - Heat syncope, initial encounter Assessment/Plan 01/22/2019 Echo: Severely decreased LVEF 28%, mild decreased RV fxn, mild KUN, mild MR, TR 01/23/2019 Dilated cardiomyopathy LVEF 10% TID 1.28 1. Cardiomyopathy - hypertensive vs ETOH vs toxic vs ischemic 2. Severe LV systolic dysfunction without failure 3. Syncope, in context of heroin and ETOH abuse 4. Anxiety 5. Palpitations w/o sustained tachyarrhythmias on telemetry PLAN: 1. Ruled out [place] 2. Increase Carvedilol 6.25 mg BID and uptitrate 3. Increase lisinopril 10 qd, replete K 4. Continue ASA 81 qd 5. Patient is not ideal candidate for cath, [employer]-D consideration given active substance abuse and lack of compliance
[2019-01-23] MEDS: cloNIDine HCL 0.1 MG TABLET PO PRN ×2 (17:14→22:14)
[2019-01-23] MEDS: CARVEDILOL 6.25 MG TABLET (FP) PO SCH (22:15)
--- NOTE | 2019-01-23 23:12 | PN ---
Progress Note, Physician - Current Medication List Current Medications: Active Medications Acetaminophen (Tylenol -) 650 mg PO Q4H PRN PRN Reason: PAIN Last Admin: 01/23/19 22:15 Dose: 650 mg Alprazolam (Xanax -) 0.5 mg PO Q8H PRN PRN Reason: ANXIETY Last Admin: 01/23/19 17:14 Dose: 0.5 mg Aspirin (Ecotrin -) 81 mg PO DAILY [facility] Last Admin: 01/23/19 13:29 Dose: 81 mg Carvedilol (Coreg -) 6.25 mg PO BID [facility] Last Admin: 01/23/19 22:15 Dose: 6.25 mg Clonidine (Catapres -) 0.1 mg PO Q4H PRN PRN Reason: WITHDRAWAL(CONT SUBST) Last Admin: 01/23/19 22:14 Dose: 0.1 mg Heparin Sodium (Porcine) (Heparin -) 5,000 unit SQ BID [facility] Last Admin: 01/23/19 22:15 Dose: 5,000 unit Lisinopril (Prinivil) 5 mg PO BID [facility] Last Admin: 01/23/19 22:15 Dose: 5 mg Thiamine HCl (Vitamin B1 Injection -) 250 mg IVPB TID [facility] Stop: 01/25/19 13:59 Last Admin: 01/23/19 22:16 Dose: 250 mg - Objective Vital Signs: Vital Signs Temperature 97.9 F 01/23/19 18:49 Pulse Rate 73 01/23/19 22:00 Respiratory Rate 24 H 01/23/19 22:00 Blood Pressure 157/104 H 01/23/19 22:00 O2 Sat by Pulse Oximetry (%) 99 01/23/19 18:47 Neck: Yes: WNL, Supple Cardiovascular: Yes: WNL, Regular Rate and Rhythm Respiratory: Yes: WNL, Regular, CTA Bilaterally Gastrointestinal: Yes: WNL, Normal Bowel Sounds, Soft Labs: CBC, BMP 01/23/19 05:30 01/23/19 05:30 INR, PTT INR 0.87 (0.83-1.09) 01/21/19 15:47 Problem List - Problems (1) Acute on chronic systolic and diastolic heart failure, NYHA class 1 Code(s): I50.43 - ACUTE ON CHRONIC COMBINED SYSTOLIC AND DIASTOLIC HRT FAIL (2) HTN (hypertension) Code(s): I10 - ESSENTIAL (PRIMARY) HYPERTENSION Qualifiers: Hypertension type: essential hypertension Qualified Code(s): I10 - Essential (primary) hypertension (3) Syncope Code(s): R55 - SYNCOPE AND COLLAPSE Qualifiers: Syncope type: heat syncope Encounter type: initial encounter Qualified Code(s): T67.1XXA - Heat syncope, initial encounter (4) Peripheral neuropathy Code(s): G62.9 - POLYNEUROPATHY, UNSPECIFIED (5) Polysubstance abuse Code(s): F19.10 - OTHER PSYCHOACTIVE SUBSTANCE ABUSE, UNCOMPLICATED
[2019-01-24] MEDS: ALPRAZolam 0.25 MG TABLET PO PRN (00:28)
[2019-01-24 06:35] LABS: BASO % 0.3 % (0-2.0); EOS % 1.2 % (0-4.5); HEMATOCRIT 40.6 % (35.4-49); HEMOGLOBIN 13.9 GM/dL (11.7-16.9); LYMPH % 26.2 % (8-40); MCH 35.3 pg (25.7-33.7); MCHC 34.2 g/dl (32.0-35.9); MEAN CELL VOLUME 103.4 fl (80-96); MEAN PLT VOLUME 8.6 fl (7.5-11.1); MONO % 12.6 % (3.8-10.2); NEUT % 59.7 % (42.8-82.8); PLATELET COUNT 165 K/MM3 (134-434); RBC 3.93 M/mm3 (4.00-5.60); RDW 13.4 % (11.9-15.9); WHITE BLOOD COUNT 4.9 K/mm3 (4.0-10.0)
[2019-01-24] MEDS: THIAMINE HCL 200 MG/2 ML VIAL IVPB SCH ×3 (06:39→21:59)
[2019-01-24 07:18] LABS: ALBUMIN 3.3 g/dl (3.4-5.0); ALK PHOS 77 U/L (45-117); ANION GAP 11 MMOL/L (8-16); BILIRUBIN,TOTAL 1.5 mg/dL (0.2-1); BLOOD UREA NITROGEN 11 mg/dL (7-18); CALCIUM 8.5 mg/dL (8.5-10.1); CHLORIDE 98 mmol/L (98-107); CO2 23 mmol/L (21-32); CREATININE 0.9 mg/dL (0.55-1.3); GLUCOSE,RANDOM 79 mg/dL (74-106); POTASSIUM 4.1 mmol/L (3.5-5.1); SGOT/AST 33 U/L (15-37); SGPT/ALT 25 U/L (13-61); SODIUM 133 mmol/L (136-145); TOT PROT 6.2 g/dl (6.4-8.2)
[2019-01-24] MEDS: HEPARIN NA (PORCINE) 5,000 UNITS/ML 1ML VIAL SQ SCH ×2 (09:13→21:59)
[2019-01-24] MEDS: LISINOPRIL 5 MG TABLET (FP) PO SCH (09:14)
[2019-01-24] MEDS: CARVEDILOL 6.25 MG TABLET (FP) PO SCH ×2 (09:14→21:59)
[2019-01-24] MEDS: cloNIDine HCL 0.1 MG TABLET PO PRN (09:14)
[2019-01-24] MEDS: ASPIRIN COATED 81 MG TABLET.EC PO SCH (09:20)
--- NOTE | 2019-01-24 09:22 | PN ---
"S COWS - Scale Resting Pulse: 0= OR 80 or Below Sweatin= Chills/Flushing Restless Observation: 3= Extraneous Movement Pupil Size: 0= Normal to Room Light Bone or Joint Aches: 2= Severe Diffuse Aches Runny Nose/ Eye Tearin= Nasal Congestion GI Upset > 30mins: 2= Nausea/Diarrhea Tremor Observation of Outstretched Hands: 0= None Yawning Observation: 0= None Anxiety or Irritability: 4=Extreme Anxiety Goose Flesh Skin: 0=Smooth Skin COWS Score: 13 [facility] Progress Note (SOAP) Subjective: 69 y.o. male referred for consultation , reports heroin use x 45 years, most recent detox 3-4 years ago , reports daily use average 4-5 bags of heroin via inhalation , denies IVDU , denies OD . cocaine - 15 years ago cannabis- daily tobacco - daily etoh - daily 2 beers , denies w/d seizures Pt admitted to the hospital Active Medications Acetaminophen (Tylenol -) 650 mg PO Q4H PRN PRN Reason: PAIN Last Admin: 01/23/19 22:15 Dose: 650 mg Alprazolam (Xanax -) 0.5 mg PO Q8H PRN PRN Reason: ANXIETY Last Admin: 01/24/19 00:28 Dose: 0.5 mg Aspirin (Ecotrin -) 81 mg PO DAILY [facility] Last Admin: 01/24/19 09:20 Dose: 81 mg Carvedilol (Coreg -) 6.25 mg PO BID [facility] Last Admin: 01/24/19 09:14 Dose: 6.25 mg Clonidine (Catapres -) 0.1 mg PO Q4H PRN PRN Reason: WITHDRAWAL(CONT SUBST) Last Admin: 01/24/19 09:14 Dose: 0.1 mg Heparin Sodium (Porcine) (Heparin -) 5,000 unit SQ BID [facility] Last Admin: 01/24/19 09:13 Dose: 5,000 unit Lisinopril (Prinivil) 5 mg PO BID [facility] Last Admin: 01/24/19 09:14 Dose: 5 mg Thiamine HCl (Vitamin B1 Injection -) 250 mg IVPB TID [facility] Stop: 01/25/19 13:59 Last Admin: 01/24/19 06:39 Dose: 250 mg after syncopal episode , reports symptoms as above , severe bodyaches , nausea, irritbaility / anxiety . Search Terms: anai grimm, 1950 Search Date: 01/24/2019 09:23:36 AM The Drug Utilization Report below displays all of the controlled substance prescriptions, if any, that your patient has filled in the last twelve months. The information displayed on this report is compiled from pharmacy submissions to the Department, and accurately reflects the information as submitted by the pharmacies. This report was requested by: Malka Silva | Reference #: [id number] There are no results for the search terms that you entered. Objective: 01/24/19 09:21 CBC, BMP 01/24/19 05:30 01/24/19 05:30 Vital Signs - 24 hr 01/23/19 01/23/19 01/23/19 10:00 13:21 17:00 Temperature 97.5 F L Pulse Rate 76 95 H Respiratory 14 24 H Rate Blood Pressure 157/94 136/107 H O2 Sat by Pulse 100 Oximetry (%) 01/23/19 01/23/19 01/23/19 18:47 18:49 20:11 Temperature 97.9 F Pulse Rate 80 73 Respiratory 16 18 Rate Blood Pressure 131/99 134/99 O2 Sat by Pulse 99 Oximetry (%) 01/23/19 01/24/19 01/24/19 22:00 02:00 02:35 Temperature 100.6 F H 98.7 F Pulse Rate 73 61 Respiratory 22 H 26 H Rate Blood Pressure 157/104 H 124/88 O2 Sat by Pulse 100 Oximetry (%) 01/24/19 06:47 Temperature 98.6 F Pulse Rate 79 Respiratory 28 H Rate Blood Pressure 139/88 O2 Sat by Pulse Oximetry (%) u tox on admission + opiates wnwd , mild distress heent ; NCAT EOMI resp : no distress noted ext : no c/c/e neuro : aao x 3 Assessment: 01/24/19 09:21 opioid dependence Plan: Methadone taper pt to consider rehab or outpatient program after d/c from hospital"
[2019-01-24] MEDS ORDERED: METHADONE HCL 10 MG TABLET PO ONE (10:45)
[2019-01-24 11:21] LABS: PLATELET ESTIMATE NORMAL
--- NOTE | 2019-01-24 12:11 | PN ---
Progress Note, Physician History of Present Illness: No further near or true syncope, denies chest tightness, dyspnea at rest. Last use of heroin several days ago, drinks ETOH daily. - Current Medication List Current Medications: Active Medications Acetaminophen (Tylenol -) 650 mg PO Q4H PRN PRN Reason: PAIN Last Admin: 01/23/19 22:15 Dose: 650 mg Aspirin (Ecotrin -) 81 mg PO DAILY [facility] Last Admin: 01/24/19 09:20 Dose: 81 mg Carvedilol (Coreg -) 6.25 mg PO BID [facility] Last Admin: 01/24/19 09:14 Dose: 6.25 mg Clonidine (Catapres -) 0.1 mg PO Q4H PRN PRN Reason: WITHDRAWAL(CONT SUBST) Last Admin: 01/24/19 09:14 Dose: 0.1 mg Heparin Sodium (Porcine) (Heparin -) 5,000 unit SQ BID [facility] Last Admin: 01/24/19 09:13 Dose: 5,000 unit Lisinopril (Prinivil) 5 mg PO BID [facility] Last Admin: 01/24/19 09:14 Dose: 5 mg Methadone HCl (Dolophine -) 5 mg PO ONCE ONE Stop: 01/25/19 10:01 Methadone HCl (Dolophine -) 5 mg PO ONCE ONE Stop: 01/26/19 10:01 Thiamine HCl (Vitamin B1 Injection -) 250 mg IVPB TID [facility] Stop: 01/25/19 13:59 Last Admin: 01/24/19 06:39 Dose: 250 mg - Objective Vital Signs: Vital Signs Temperature 98.6 F 01/24/19 06:47 Pulse Rate 79 01/24/19 06:47 Respiratory Rate 28 H 01/24/19 06:47 Blood Pressure 139/88 01/24/19 06:47 O2 Sat by Pulse Oximetry (%) 100 01/23/19 22:00 Constitutional: Yes: No Distress, Calm, Thin Neck: Yes: Supple Cardiovascular: Yes: Regular Rate and Rhythm Respiratory: Yes: Regular, Diminished, On Nasal O2 Gastrointestinal: Yes: Normal Bowel Sounds, Soft Edema: No Labs: CBC, BMP 01/24/19 05:30 01/24/19 05:30 INR, PTT INR 0.87 (0.83-1.09) 01/21/19 15:47 - ....Imaging EKG: Report Reviewed (Tele: No sustained tachyarrhythmias) Problem List - Problems (1) Alcohol abuse Code(s): F10.10 - ALCOHOL ABUSE, UNCOMPLICATED (2) Cardiomyopathy Code(s): I42.9 - CARDIOMYOPATHY, UNSPECIFIED Qualifiers: Cardiomyopathy type: unspecified Qualified Code(s): I42.9 - Cardiomyopathy , unspecified (3) HTN (hypertension) Code(s): I10 - ESSENTIAL (PRIMARY) HYPERTENSION Qualifiers: Hypertension type: essential hypertension Qualified Code(s): I10 - Essential (primary) hypertension (4) Heroin dependence Code(s): F11.20 - OPIOID DEPENDENCE, UNCOMPLICATED (5) Polysubstance abuse Code(s): F19.10 - OTHER PSYCHOACTIVE SUBSTANCE ABUSE, UNCOMPLICATED (6) Syncope Code(s): R55 - SYNCOPE AND COLLAPSE Qualifiers: Syncope type: heat syncope Encounter type: initial encounter Qualified Code(s): T67.1XXA - Heat syncope, initial encounter Assessment/Plan 01/22/2019 Echo: Severely decreased LVEF 28%, mild decreased RV fxn, mild KUN, mild MR, TR 01/23/2019 Dilated cardiomyopathy LVEF 10% TID 1.28 1. Cardiomyopathy - hypertensive vs ETOH vs toxic vs ischemic 2. Severe LV systolic dysfunction without failure 3. Syncope, in context of heroin and ETOH abuse 4. Anxiety 5. Palpitations w/o sustained tachyarrhythmias on telemetry PLAN: 1. Ruled out [place] 2. Increased Carvedilol 6.25 mg BID and uptitrate 3. Increase lisinopril 10 bid, replete K 4. Continue ASA 81 qd 5. Patient is not ideal candidate for cath, aldosterone inhibition, KEG WASHER-D consideration given active substance abuse and lack of compliance and f/u 6. Methadone taper per detox service
[2019-01-24] MEDS: LISINOPRIL 10 MG TABLET (FP) PO SCH (21:59)
--- NOTE | 2019-01-24 22:34 | PN ---
Progress Note, Physician History of Present Illness: No new complaints - Current Medication List Current Medications: Active Medications Acetaminophen (Tylenol -) 650 mg PO Q4H PRN PRN Reason: PAIN Last Admin: 01/23/19 22:15 Dose: 650 mg Aspirin (Ecotrin -) 81 mg PO DAILY [facility] Last Admin: 01/24/19 09:20 Dose: 81 mg Carvedilol (Coreg -) 6.25 mg PO BID [facility] Last Admin: 01/24/19 21:59 Dose: 6.25 mg Clonidine (Catapres -) 0.1 mg PO Q4H PRN PRN Reason: WITHDRAWAL(CONT SUBST) Last Admin: 01/24/19 09:14 Dose: 0.1 mg Heparin Sodium (Porcine) (Heparin -) 5,000 unit SQ BID [facility] Last Admin: 01/24/19 21:59 Dose: 5,000 unit Lisinopril (Prinivil) 10 mg PO BID [facility] Last Admin: 01/24/19 21:59 Dose: 10 mg Methadone HCl (Dolophine -) 5 mg PO ONCE ONE Stop: 01/25/19 10:01 Methadone HCl (Dolophine -) 5 mg PO ONCE ONE Stop: 01/26/19 10:01 Thiamine HCl (Vitamin B1 Injection -) 250 mg IVPB TID [facility] Stop: 01/25/19 13:59 Last Admin: 01/24/19 21:59 Dose: 250 mg - Objective Vital Signs: Vital Signs Temperature 97.9 F 01/24/19 13:52 Pulse Rate 74 01/24/19 13:52 Respiratory Rate 26 H 01/24/19 13:52 Blood Pressure 122/88 01/24/19 13:52 O2 Sat by Pulse Oximetry (%) 100 01/24/19 10:00 Neck: Yes: WNL, Supple Cardiovascular: Yes: WNL, Regular Rate and Rhythm Respiratory: Yes: WNL, Regular, CTA Bilaterally Gastrointestinal: Yes: WNL, Normal Bowel Sounds, Soft Edema: No Labs: CBC, BMP 01/24/19 05:30 01/24/19 05:30 INR, PTT INR 0.87 (0.83-1.09) 01/21/19 15:47 Problem List - Problems (1) Syncope Assessment/Plan: CT scan head unremarkable Carotid doppler did not show significant stenosis Stress test: Pt not candidate for cath Treat medically Code(s): R55 - SYNCOPE AND COLLAPSE Qualifiers: Syncope type: heat syncope Encounter type: initial encounter Qualified Code(s): T67.1XXA - Heat syncope, initial encounter (2) HTN (hypertension) Assessment/Plan: Cont Asa/coreg/lisinopril Code(s): I10 - ESSENTIAL (PRIMARY) HYPERTENSION Qualifiers: Hypertension type: essential hypertension Qualified Code(s): I10 - Essential (primary) hypertension (3) Peripheral neuropathy Assessment/Plan: Cont IV B12 Code(s): G62.9 - POLYNEUROPATHY, UNSPECIFIED (4) Polysubstance abuse Assessment/Plan: Urine toxicology screen Cont methadone taper Code(s): F19.10 - OTHER PSYCHOACTIVE SUBSTANCE ABUSE, UNCOMPLICATED
[2019-01-25] MEDS: cloNIDine HCL 0.1 MG TABLET PO PRN ×3 (00:06→12:53)
[2019-01-25] MEDS: ACETAMINOPHEN 325 MG TABLET (FP) PO PRN ×4 (02:27→21:40)
[2019-01-25] MEDS: THIAMINE HCL 200 MG/2 ML VIAL IVPB SCH (05:42)
[2019-01-25] MEDS ORDERED: PT OWN MED DRAWER 7, Y5N ONE (09:01)
[2019-01-25] MEDS: CARVEDILOL 6.25 MG TABLET (FP) PO SCH ×2 (09:03→21:39)
[2019-01-25] MEDS: ASPIRIN COATED 81 MG TABLET.EC PO SCH (09:03)
[2019-01-25] MEDS: HEPARIN NA (PORCINE) 5,000 UNITS/ML 1ML VIAL SQ SCH ×2 (09:03→21:39)
[2019-01-25] MEDS: LISINOPRIL 10 MG TABLET (FP) PO SCH ×2 (09:04→21:39)
[2019-01-25] MEDS ORDERED: METHADONE HCL 5 MG TABLET PO ONE (10:00)
--- NOTE | 2019-01-25 11:22 | PN ---
Progress Note, Physician History of Present Illness: No further near or true syncope, denies chest tightness, dyspnea at rest. Last use of heroin several days ago, drinks ETOH daily. - Current Medication List Current Medications: Active Medications Acetaminophen (Tylenol -) 650 mg PO Q4H PRN PRN Reason: PAIN Last Admin: 01/25/19 06:44 Dose: 650 mg Aspirin (Ecotrin -) 81 mg PO DAILY [facility] Last Admin: 01/25/19 09:03 Dose: 81 mg Carvedilol (Coreg -) 6.25 mg PO BID [facility] Last Admin: 01/25/19 09:03 Dose: 6.25 mg Clonidine (Catapres -) 0.1 mg PO Q4H PRN PRN Reason: WITHDRAWAL(CONT SUBST) Last Admin: 01/25/19 04:10 Dose: 0.1 mg Heparin Sodium (Porcine) (Heparin -) 5,000 unit SQ BID [facility] Last Admin: 01/25/19 09:03 Dose: 5,000 unit Lisinopril (Prinivil) 10 mg PO BID [facility] Last Admin: 01/25/19 09:04 Dose: 10 mg Methadone HCl (Dolophine -) 5 mg PO ONCE ONE Stop: 01/26/19 10:01 Thiamine HCl (Vitamin B1 Injection -) 250 mg IVPB TID [facility] Stop: 01/25/19 13:59 Last Admin: 01/25/19 05:42 Dose: 250 mg - Objective Vital Signs: Vital Signs Temperature 98.1 F 01/25/19 08:00 Pulse Rate 75 01/25/19 08:00 Respiratory Rate 23 H 01/25/19 08:00 Blood Pressure 124/98 01/25/19 08:00 O2 Sat by Pulse Oximetry (%) 100 01/25/19 08:00 Constitutional: Yes: No Distress, Calm, Thin Neck: Yes: Supple Cardiovascular: Yes: Regular Rate and Rhythm Respiratory: Yes: Regular, CTA Bilaterally Gastrointestinal: Yes: Normal Bowel Sounds, Soft Edema: No Labs: CBC, BMP 01/24/19 05:30 01/24/19 05:30 INR, PTT INR 0.87 (0.83-1.09) 01/21/19 15:47 Problem List - Problems (1) Alcohol abuse Code(s): F10.10 - ALCOHOL ABUSE, UNCOMPLICATED (2) Cardiomyopathy Code(s): I42.9 - CARDIOMYOPATHY, UNSPECIFIED Qualifiers: Cardiomyopathy type: unspecified Qualified Code(s): I42.9 - Cardiomyopathy , unspecified (3) HTN (hypertension) Code(s): I10 - ESSENTIAL (PRIMARY) HYPERTENSION Qualifiers: Hypertension type: essential hypertension Qualified Code(s): I10 - Essential (primary) hypertension (4) Heroin dependence Code(s): F11.20 - OPIOID DEPENDENCE, UNCOMPLICATED (5) Polysubstance abuse Code(s): F19.10 - OTHER PSYCHOACTIVE SUBSTANCE ABUSE, UNCOMPLICATED (6) Syncope Code(s): R55 - SYNCOPE AND COLLAPSE Qualifiers: Syncope type: heat syncope Encounter type: initial encounter Qualified Code(s): T67.1XXA - Heat syncope, initial encounter Assessment/Plan 01/22/2019 Echo: Severely decreased LVEF 28%, mild decreased RV fxn, mild KUN, mild MR, TR 01/23/2019 Dilated cardiomyopathy LVEF 10% TID 1.28 1. Cardiomyopathy - hypertensive vs ETOH vs toxic vs ischemic 2. Severe LV systolic dysfunction without failure 3. Syncope, in context of heroin and ETOH abuse 4. Anxiety 5. Palpitations w/o sustained tachyarrhythmias on telemetry PLAN: 1. Ruled out [place] 2. Increased Carvedilol 6.25 mg BID and uptitrate 3. Increase lisinopril 10 bid 4. Continue ASA 81 qd 5. Patient is not ideal candidate for cath, aldosterone inhibition, GRINDER-D consideration given active substance abuse and lack of compliance and f/u 6. Methadone taper per detox service
[2019-01-25] MEDS ORDERED: KETOROLAC TROMETHAMINE 30 MG/1 ML VIAL IVPUSH ONE (15:15)
--- NOTE | 2019-01-26 02:06 | PN ---
Progress Note, Physician History of Present Illness: Pt seen and examined 01/25/19 however note is being entered now - Current Medication List Current Medications: Active Medications Acetaminophen (Tylenol -) 650 mg PO Q4H PRN PRN Reason: PAIN Last Admin: 01/25/19 21:40 Dose: 650 mg Aspirin (Ecotrin -) 81 mg PO DAILY [facility] Last Admin: 01/25/19 09:03 Dose: 81 mg Carvedilol (Coreg -) 6.25 mg PO BID [facility] Last Admin: 01/25/19 21:39 Dose: 6.25 mg Clonidine (Catapres -) 0.1 mg PO Q4H PRN PRN Reason: WITHDRAWAL(CONT SUBST) Last Admin: 01/25/19 12:53 Dose: 0.1 mg Heparin Sodium (Porcine) (Heparin -) 5,000 unit SQ BID [facility] Last Admin: 01/25/19 21:39 Dose: 5,000 unit Lisinopril (Prinivil) 10 mg PO BID [facility] Last Admin: 01/25/19 21:39 Dose: 10 mg Methadone HCl (Dolophine -) 5 mg PO ONCE ONE Stop: 01/26/19 10:01 - Objective Vital Signs: Vital Signs Temperature 98.0 F 01/25/19 18:00 Pulse Rate 68 01/25/19 20:30 Respiratory Rate 20 01/25/19 20:30 Blood Pressure 123/85 01/25/19 20:30 O2 Sat by Pulse Oximetry (%) 100 01/25/19 08:00 Labs: CBC, BMP 01/24/19 05:30 01/24/19 05:30 INR, PTT INR 0.87 (0.83-1.09) 01/21/19 15:47 Problem List - Problems (1) Syncope Code(s): R55 - SYNCOPE AND COLLAPSE Qualifiers: Syncope type: heat syncope Encounter type: initial encounter Qualified Code(s): T67.1XXA - Heat syncope, initial encounter (2) HTN (hypertension) Code(s): I10 - ESSENTIAL (PRIMARY) HYPERTENSION Qualifiers: Hypertension type: essential hypertension Qualified Code(s): I10 - Essential (primary) hypertension (3) Peripheral neuropathy Code(s): G62.9 - POLYNEUROPATHY, UNSPECIFIED (4) Polysubstance abuse Code(s): F19.10 - OTHER PSYCHOACTIVE SUBSTANCE ABUSE, UNCOMPLICATED
[2019-01-26] MEDS: CARVEDILOL 6.25 MG TABLET (FP) PO SCH (09:19)
[2019-01-26] MEDS: LISINOPRIL 10 MG TABLET (FP) PO SCH (09:19)
[2019-01-26] MEDS: ASPIRIN COATED 81 MG TABLET.EC PO SCH (09:19)
[2019-01-26] MEDS: HEPARIN NA (PORCINE) 5,000 UNITS/ML 1ML VIAL SQ SCH (09:20)
[2019-01-26] MEDS ORDERED: METHADONE HCL 5 MG TABLET PO ONE (10:00)
[2019-01-26 17:15] VITALS: BP 116/76; PULSE 89; TEMP 99
== END 2019-01-26 18:36 | disposition home or self-care (01) | DRG 315 ==
LOC: JER 14:24 → JERBED 17:55 → J2W 01-22 23:51 → J8W 01-25 20:41
PROVIDERS: ADMIT Internal Medicine; ATTEND Internal Medicine
DX: I42.6 Alcoholic cardiomyopathy (principal); S06.9X9A Unspecified intracranial injury with loss of consciousness of unspecified duration, initial encounter; R64 Cachexia; F11.20 Opioid dependence, uncomplicated; I50.42 Chronic combined systolic (congestive) and diastolic (congestive) heart failure; I11.0 Hypertensive heart disease with heart failure; I42.7 Cardiomyopathy due to drug and external agent; I25.5 Ischemic cardiomyopathy; R55 Syncope and collapse; Z68.20 Body mass index [BMI] 20.0-20.9, adult; G62.9 Polyneuropathy, unspecified; F19.10 Other psychoactive substance abuse, uncomplicated; F10.10 Alcohol abuse, uncomplicated; R00.2 Palpitations; F17.210 Nicotine dependence, cigarettes, uncomplicated; N40.0 Benign prostatic hyperplasia without lower urinary tract symptoms; W19.XXXA Unspecified fall, initial encounter; Y93.9 Activity, unspecified; Y92.090 Kitchen in other non-institutional residence as the place of occurrence of the external cause; Y99.9 Unspecified external cause status
CPT/HCPCS: 36415; 70450-TC; 71045-TC-FY; 78452-TC; 80053; 80061; 80307; 82140; 82550; 82553; 82607; 82746; 83540; 83550; 83721; 83735; 83880; 84443; 84484; 85025; 85610; 93005; 93010; 93017; 93306-TC; 93880-TC; 99285-25; A9502; J0735; J1644; J2785